=== PATIENT | male | born 1945 | race Hispanic/Latino ===

== ENCOUNTER 2023-04-07 15:29 | Emergency (ER) | payer OTHER, SELFPAY ==
[2023-04-07 15:31] VITALS: BP 177/92
[2023-04-07] MEDS: TORADOL 30 MG IM (16:21)
--- NOTE | 2023-04-07 17:57 | ED.GENMED ---
History of Present Illness
General
Chief Complaint: Swelling
Source: patient
Exam Limitations: none
Time Seen by Provider: 04/07/23 15:59
Nursing documentation reviewed up to this point in time: agreed with
Travel History
Have you had any contact with someone who has COVID-19?: No
Do you have any symptoms of coronavirus? Fever > 100 degrees, chills, cough, shortness of breath, sore throat, loss of taste or smell, muscle aches, or headache?: No
History of Present Illness
History of Present Illness:
The patient is a 77-year-old male with past medical history of hypertension hyperlipidemia and diabetes presenting to the emergency department today with concerns of right-sided discomfort over the past 3 months. Denies any inciting event. Has had
some swelling but denies any redness or warmth no fevers no systemic symptoms. Has not seen a orthopedic doctor for this.
Review of Systems
Review of Systems
Allergies reviewed?: Yes
All Other Systems: ROS reviewed and negative except as documented in HPI and ROS
Phy Exam
Physical Exam
Physical Exam:
GENERAL: Alert , in no apparent distress
EYE: pupils equal and reactive
NECK: Supple, no significant adenopathy.
ENT: o/p clr, mmm.
CARDIAC: Regular rate and rhythm .
LUNGS: Clear breath sounds bilaterally, no acute respiratory distress, no wheezes/rales/rhonchi
ABDOMEN: Soft, without focal tenderness, no r/g, no cvat
NEUROLOGICAL: Alert and oriented, no focal neuro deficits
SKIN: Warm and dry, skin intact.
MUSCULOSKELETAL: Mild swelling to the right knee tenderness palpation to the suprapatellar tendon otherwise no redness or warmth good range of motion of the knee. No joint laxity. Well perfused.
PSYCH: Normal and appropriate interaction.
Scores
Heart Failure Risk
Heart Failure Risk Score: Not Applicable
Course
Orders/Labs/Results
Orders:
Orders
04/07/23 16:14
Ketorolac [Toradol] 30 mg IM NOW STA
CR Knee- Right 4 Or More View* Urgent
Comment:
Reason For Exam: swelling poain
04/07/23 17:57
George Wrap Right-Treatment ONCE
Vital Signs
Initial and Last Documented VS:
Initial Vital Signs
Temp Pulse Resp BP Pulse Ox
98.1 F 74 18 177/92 99
04/07/23 15:31 04/07/23 15:31 04/07/23 15:31 04/07/23 15:31 04/07/23 15:31
Last Documented Vital Signs
Temp Pulse Resp BP Pulse Ox
98.1 F 74 18 177/92 99
04/07/23 15:31 04/07/23 15:31 04/07/23 15:31 04/07/23 15:31 04/07/23 15:31
MDM/Problems Addressed
MDM/Problems Addressed:
77-year-old male presenting to the emergency department today with concerns of right-sided knee swelling and discomfort of the past 3 months. Here there is no redness or warmth no signs of septic arthritis good range of motion x-ray showing
significant arthritis which may be contributing to patient's ongoing discomfort patient was given an George bandage advised to rest ice compress and elevate and follow-up closely with orthopedics for further evaluation. Return precautions
*Critical Care Note
Total Time (30-74mins, 75-104mins- exclusive of procedures): Not Applicable
ED Attending Note
-
Portions of this chart may have been created with voice recognition software.� Occasional wrong word or��sound alike� substitutions may have occurred due to the inherent limitations of voice recognition software.
Discharge Plan
Departure
Patient Disposition: Home (Routine Discharge)
Date of Disposition: 04/07/23
Time of Disposition: 18:06
Patient with high blood pressure during this ER visit?: No
Condition: Good
Covid-19: Not Applicable
Discharge Problem:
Acute knee pain
Instructions: Knee Pain ED
Referrals:
Telma Elmore DO [Family Provider] -
Bart Sellers MD [Active] - Follow up in 5-7 days
Activity Restrictions/Additional Instructions:
You came to the emergency department today with concerns of knee discomfort. Please use a brace and a cane to protect the joint and follow-up closely with orthopedics for further assessment. In the meantime please rest ice compress and elevate.
Return to the emergency department for any worsening, new or concerning symptoms.
Interventions
Interventions:
*Risk Screen - Suicide Last Done: 04/07/23 15:31
*General Assessment Last Done: 04/07/23 15:31
*Neglect/Abuse Screening Last Done: 04/07/23 15:31
*ED COVID-19 Vaccine History Last Done: 04/07/23 15:31
ED- Cardiac Assessment Last Done: 04/07/23 16:25
ED- Pulmonary Assessment Last Done: 04/07/23 16:25
ED-Skin Assessment Last Done: 04/07/23 16:25
== END 2023-04-07 18:14 | disposition home or self-care (01) ==
LOC: EMR 15:29
PROVIDERS: EMERGENCY PHYSICIAN Emergency Medicine; FAMILY PHYSICIAN Family Medicine
DX: M25.561 Pain in right knee (principal); I10 Essential (primary) hypertension; E78.5 Hyperlipidemia, unspecified
CPT/HCPCS: 99284; 96372; 73564

== ENCOUNTER → 2023-05-04 13:46 | Outpatient (REF) | payer OTHER, SELFPAY | LOC: RAD 13:46 | PROVIDERS: ATTENDING PHYSICIAN Family Medicine | DX: R91.1 Solitary pulmonary nodule (principal) | CPT/HCPCS: 71260; Q9967 ==

== ENCOUNTER → 2023-10-21 08:44 | Outpatient (REF) | payer OTHER, SELFPAY | LOC: HWRCS 08:44 | PROVIDERS: ATTENDING PHYSICIAN Family Medicine | DX: I25.2 Old myocardial infarction (principal) | CPT/HCPCS: 93306 ==

== ENCOUNTER → 2023-11-02 07:22 | Outpatient (REF) | payer OTHER, SELFPAY | LOC: DHCBC/DCA 07:22 | PROVIDERS: ATTENDING PHYSICIAN Internal Medicine Cardiovascular Disease; FAMILY PHYSICIAN Family Medicine | DX: R07.89 Other chest pain (principal); R06.02 Shortness of breath; I73.9 Peripheral vascular disease, unspecified; Z87.891 Personal history of nicotine dependence | CPT/HCPCS: 78452; 93017; A9500; J2785 ==

== ENCOUNTER → 2023-12-05 07:23 | Outpatient (REF) | payer OTHER, SELFPAY | LOC: RAD 07:23 | PROVIDERS: ATTENDING PHYSICIAN Internal Medicine Cardiovascular Disease; FAMILY PHYSICIAN Family Medicine | DX: R07.89 Other chest pain (principal); R06.02 Shortness of breath; I73.9 Peripheral vascular disease, unspecified; Z87.891 Personal history of nicotine dependence | CPT/HCPCS: 76770; 93922; 93925 ==

== ENCOUNTER 2023-12-28 08:36 | Day surgery (SDC) | payer OTHER, SELFPAY ==
[2023-12-28] VITALS (16 sets, daily range): BP systolic 116–209; BP diastolic 64–106; BMI 24.8
[2023-12-28 09:03] LABS: Hematocrit 35.9 % (39.0-52.0); Mean Corp Hgb Conc. 33.4 g/dL (33.0-37.0); Mean Corpuscular Hgb 27.3 pg (27.0-31.0); Mean Corpuscular Volume 81.6 fL (80.0-94.0); Mean Platelet Volume 11.2 fL (7.4-10.4); Platelet Count 153 10^3/uL (130-400); Red Cell Dist. Width 14.5 % (11.5-14.5)
[2023-12-28 09:23] LABS: ALT (SGPT) 21 U/L (0-50); AST (SGOT) 22 U/L (17-59); Albumin 4.4 g/dl (3.5-5.0); Alkaline Phosphatase 70 U/L (38-126); Blood Urea Nitrogen 26 mg/dl (9-20); Calcium 9.5 mg/dl (8.4-10.2); Carbon Dioxide 27 mmol/L (22-30); Chloride 104 mmol/L (98-107); Estimated Creatinine Clearance 48 ml/min; Glucose 162 mg/dl (70-99); Potassium 4.5 mmol/L (3.5-5.1); Sodium 142 mmol/L (135-145); Total Bilirubin 0.5 mg/dl (0.2-1.3); Total Protein 7.2 g/dl (6.3-8.2); eGFR > 60.00
[2023-12-28 09:27] LABS: Glucose - Point of Care 154 mg/dl (70-99)
--- NOTE | 2023-12-28 12:55 | ITS.CL.CATH ---
[employer] - Catheterization
Cardiac Catheterization
Procedure Report:
LEFT HEART CATHETERIZATION
Date of Procedure: December 28, 2023
Referring: Jad Barron
PROCEDURES:
1. Left heart catheterization, coronary angiogram.
2. Ultrasound-guided access
INDICATION: New cardiomyopathy
ACCESS: Right radial artery, 6 [place] sheath, under ultrasound guidance.
HEMODYNAMICS : (mmHg)
AO (s/d) : 108/57
LV (s/d) : 113/6
LVEDP : 11
CORONARY FINDINGS
DOMINANCE: Right
LEFT MAIN: The left main artery is a large-caliber vessel which gives rise to the left anterior descending artery and the left circumflex artery. There is minimal luminal irregularities.
LEFT ANTERIOR DESCENDING: The left anterior descending artery is a medium to large caliber vessel which gives rise to 2 major diagonal branches as it courses through the anterior interventricular groove and wraps around the apex. Mid LAD has an
eccentric up to 50% stenosis. Otherwise there is mild diffuse atherosclerotic plaque.
CIRCUMFLEX: The left circumflex artery is a medium caliber vessel which gives rise to 2 major obtuse marginal branches. There is mild diffuse atherosclerotic plaque.
RIGHT CORONARY ARTERY: The right coronary artery is a medium caliber vessel which gives rise to the right posterior descending artery and a small right posterolateral system. There is mild diffuse atherosclerotic plaque in the mid RCA with moderate
degree of tortuosity in the proximal RCA. There is a 60 to 70% ostial RPL stenosis which is a very small caliber vessel.
SEDATION: 29 minutes of procedural sedation was utilized. An independent medical office clerk was present to assist with and help manage the patient's level of consciousness and physiologic status.
RADIATION SUMMARY: Fluoro Time (min): 2.7, Dose (mGy): 263.65, DAP (Gy.cm2) : 19.2
Closure Device: Vascular band over right radial artery, 12 cc of air.
CONCLUSIONS
1. No obstructive coronary artery disease.
2. Normal LVEDP at 11 mmHg.
RECOMMENDATIONS
1. Wean radial band per protocol.
2. Optimize goal-directed medical therapy for presumed nonischemic cardiomyopathy.
3. Aggressive management of cardiovascular risk factors.
4. Referral for outpatient cardiac rehab.
Copy to: Jad Barron
Yeni Isaacs MD, FACC, [facility]
[2023-12-28] MEDS: TOPROL XL 25 MG PO (13:46)
[2023-12-28] MEDS: NORVASC 2.5 MG PO (13:50)
== END 2023-12-28 15:07 | disposition home or self-care (01) ==
LOC: CATH 08:36
PROVIDERS: ATTENDING PHYSICIAN Internal Medicine Interventional Cardiology; FAMILY PHYSICIAN Family Medicine; OTHER PHYSICIAN Internal Medicine Cardiovascular Disease
DX: I25.10 Atherosclerotic heart disease of native coronary artery without angina pectoris (principal); I42.9 Cardiomyopathy, unspecified; I10 Essential (primary) hypertension; E78.5 Hyperlipidemia, unspecified; E11.9 Type 2 diabetes mellitus without complications; Z79.01 Long term (current) use of anticoagulants; Z79.82 Long term (current) use of aspirin; Z79.84 Long term (current) use of oral hypoglycemic drugs
CPT/HCPCS: 99152; 99153; 80053; 82962; 85027; 93458; C1894; Q9967

== ENCOUNTER 2024-01-07 14:45 | Emergency (ER) | payer OTHER, SELFPAY ==
[2024-01-07 14:56] VITALS: BP 149/76
--- NOTE | 2024-01-07 15:09 | ED.GENMED ---
History of Present Illness
General
Chief Complaint: Abnormal Lab Value
Time Seen by Provider: 01/07/24 15:04
History of Present Illness
History of Present Illness:
78-year-old male presents to the emergency department due to abnormal outpatient lab. Had routine labs drawn yesterday showing a potassium level of 6.9. Patient feels well and has no complaints. He did have a cardiac catheterization done earlier
in the week and spironolactone was added to his medication therapy and amlodipine was decreased.
Review of Systems
Review of Systems
Allergies reviewed?: Yes
All Other Systems: ROS reviewed and negative except as documented in HPI and ROS
Phy Exam
Physical Exam
Physical Exam:
GEN: Well appearing, NAD, WDWN
HEENT: Oral mucosa moist, no scleral icterus
Cardiac: Regular rate
Lung: No respiratory distress, no tachypnea
MSK: No gross deformity or injuries
Skin: Good color, no pallor or jaundice, no rashes
Neuro: AO x3, moves all extremities freely
Psych: Calm, cooperative
Course
Orders/Labs/Results
Orders:
Orders
01/07/24 15:00
Electrocardiogram (*1) Urgent
Reason for Study: Other
Other Reason for Exam: elevated potassium
01/07/24 15:02
EKG- Treatment ONCE
01/07/24 15:20
Basic Metabolic Panel Urgent
Complete Blood Count/With Diff Urgent
Abnormal Lab Results
01/07/24
15:20
RBC 4.50 L 10^6/uL
(4.70-6.10)
Hgb 12.2 L g/dL
(13.0-18.0)
Hct 35.8 L %
(39.0-52.0)
MCV 79.6 L fL
(80.0-94.0)
MPV 11.4 H fL
(7.4-10.4)
Monocytes % 10.1 H %
(1.7-9.3)
BUN 34 H mg/dl
(9-20)
Creatinine 1.6 H mg/dL
(0.7-1.3)
Glucose 236 H mg/dl
(70-99)
01/07/24 15:20
01/07/24 15:20
Vital Signs
Initial and Last Documented VS:
Initial Vital Signs
Temp Pulse Resp BP Pulse Ox
98 F 70 18 149/76 99
01/07/24 14:56 01/07/24 14:56 01/07/24 14:56 01/07/24 14:56 01/07/24 14:56
Last Documented Vital Signs
Temp Pulse Resp BP Pulse Ox
98 F 92 20 153/77 99
01/07/24 14:56 01/07/24 15:30 01/07/24 15:30 01/07/24 15:15 01/07/24 15:30
MDM/Problems Addressed
MDM/Problems Addressed:
Repeat labs show normal potassium at 4.5. Mild ALEKSANDAR is noted, this is likely on the basis of spironolactone and fluid loss. Recommend this be rechecked next week as the patient has no signs or symptoms of dehydration at this time
*Critical Care Note
Total Time (30-74mins, 75-104mins- exclusive of procedures): Not Applicable
ED Attending Note
-
Portions of this chart may have been created with voice recognition software.� Occasional wrong word or��sound alike� substitutions may have occurred due to the inherent limitations of voice recognition software.
Discharge Plan
Departure
Patient Disposition: Home (Routine Discharge)
Date of Disposition: 01/07/24
Time of Disposition: 15:53
Patient with high blood pressure during this ER visit?: No
Discharge Problem:
Encounter for medical assessment
Prescriptions:
No Action
atorvastatin 40 mg Tablet
40 mg PO DAILY
glimepiride 2 mg Tablet
2 mg PO DAILY
metformin 1,000 mg Tablet
1,000 mg PO DAILY
losartan 100 mg Tablet
100 mg PO DAILY
Eliquis 5 mg Tablet
5 mg PO BID
dapagliflozin propanediol [Farxiga] 10 mg Tablet
10 mg PO DAILY
metoprolol succinate [Toprol XL] 25 mg tablet extended release 24 hr
25 mg PO BID Qty: 60 5RF
spironolactone [Aldactone] 25 mg tablet
25 mg PO DAILY Qty: 30 5RF
amlodipine 5 mg Tablet
2.5 mg PO DAILY Qty: 0 0RF
Referrals:
Telma Elmore DO [Family Provider] -
Activity Restrictions/Additional Instructions:
Have your metabolic panel rechecked in 1 week to be sure your kidney function is not worsening
Interventions
Interventions:
*Risk Screen - Suicide Last Done: 01/07/24 15:00
*General Assessment Last Done: 01/07/24 15:00
*Neglect/Abuse Screening Last Done: 01/07/24 15:00
Discharge Date and Time
Print Language: ARMENIAN
[2024-01-07 15:15] VITALS: BP 153/77
[2024-01-07 15:26] LABS: % Basophils 0.7 % (0-2); % Eosinophils 4.2 % (0-6); % Immature Granulocytes 0.3 % (0-0.5); % Lymphocytes 30.5 % (20.5-51.1); % Monocytes 10.1 % (1.7-9.3); % Neutrophils 54.2 % (42.2-75.2); Absolute Eosinophils 0.2 10^3/uL (0-0.7); Absolute Lymphocytes 1.8 10^3/uL (1.2-3.4); Absolute Monocytes 0.6 10^3/uL (0.1-0.6); Absolute Neutrophils 3.1 10^3/uL (1.4-6.5); Hematocrit 35.8 % (39.0-52.0); Hemoglobin 12.2 g/dL (13.0-18.0); Mean Corp Hgb Conc. 34.1 g/dL (33.0-37.0); Mean Corpuscular Hgb 27.1 pg (27.0-31.0); Mean Corpuscular Volume 79.6 fL (80.0-94.0); Mean Platelet Volume 11.4 fL (7.4-10.4); Nucleated Red Blood Cells % 0 % (-); Platelet Count 179 10^3/uL (130-400); Red Cell Dist. Width 14.4 % (11.5-14.5); White Blood Cell Count 5.7 10^3/uL (4.8-10.8)
[2024-01-07 15:46] LABS: Blood Urea Nitrogen 34 mg/dl (9-20); Calcium 9.5 mg/dl (8.4-10.2); Carbon Dioxide 22 mmol/L (22-30); Chloride 104 mmol/L (98-107); Glucose 236 mg/dl (70-99); Potassium 4.5 mmol/L (3.5-5.1); Sodium 142 mmol/L (135-145)
[2024-01-07 16:00] VITALS: BP 147/87
== END 2024-01-07 16:04 | disposition home or self-care (01) ==
LOC: EMR 14:45
PROVIDERS: Physician Assistant; EMERGENCY PHYSICIAN Emergency Medicine; FAMILY PHYSICIAN Family Medicine
DX: Z00.00 Encounter for general adult medical examination without abnormal findings (principal)
CPT/HCPCS: 99284; 80048; 85025; 93005

== ENCOUNTER → 2024-02-24 08:00 | Outpatient (REF) | payer OTHER, SELFPAY | LOC: RAD 08:00 | PROVIDERS: ATTENDING PHYSICIAN Internal Medicine Cardiovascular Disease | DX: M25.431 Effusion, right wrist (principal) | CPT/HCPCS: 93930 ==

== ENCOUNTER → 2024-11-03 09:59 | Outpatient (REF) | payer OTHER, SELFPAY | LOC: RAD 09:59 | PROVIDERS: ATTENDING PHYSICIAN Family Medicine | DX: R91.1 Solitary pulmonary nodule (principal) | CPT/HCPCS: 71250 ==

== ENCOUNTER → 2024-11-07 13:42 | Outpatient (REF) | payer OTHER, SELFPAY | LOC: RCS 13:42 | PROVIDERS: ATTENDING PHYSICIAN Internal Medicine Cardiovascular Disease; FAMILY PHYSICIAN Family Medicine | DX: I42.9 Cardiomyopathy, unspecified (principal) | CPT/HCPCS: 93306 ==